=== PATIENT | male | born 1950 | race Caucasian/White ===

== ENCOUNTER 2019-09-29 11:36 | Emergency (ER) | payer BC, OTHER ==
[~2019-09-29] VITALS: Ht 185.4 cm; Wt 115.7 kg
[2019-09-29 11:36] VITALS: BP_SYST 115
--- NOTE | 2019-09-29 11:36 | NUR ---
BROUGHT BACK TO HALLWAY BED, TRIAGED. REPORT GIVEN TO JUAN
--- NOTE | 2019-09-29 11:41 | NUR ---
PRESSURE DRESSING APPLIED TO RIGHT ANKLE, LACERATION IS OOZING. DR LIN IS AT BEDSIDE FOR EVALUATION
--- NOTE | 2019-09-29 11:45 | NUR ---
ER Dr. Campbell at bedside examining patient.
--- NOTE | 2019-09-29 11:50 | NUR ---
Radiology at bedside performing x-ray of right foot
[2019-09-29 13:36] VITALS: BP_SYST 115
[2019-09-29] MEDS ORDERED: TRANEXAMIC ACID 1,000 MG/10 ML VIAL TP ONE (13:45)
[2019-09-29] MEDS ORDERED: TRANEXAMIC ACID 1,000 MG/10 ML VIAL ONE (14:00)
--- NOTE | 2019-09-29 14:20 | NUR ---
at bedside for wound care.
--- NOTE | 2019-09-29 15:23 | NUR ---
Patient given written and verbal discharge instructions and verbalizes understanding. ER MD discussed with patient the results and treatment provided. Patient in stable condition. ID arm band removed. Rx of NONE given. Patient educated on pain management and to follow up with PMD. Pain Scale 0/10. Opportunity for questions provided and answered. Medication side effect fact sheet provided.
== END 2019-09-29 15:23 | disposition home or self-care (01) ==
LOC: SED 11:36
DX: S90.511A Abrasion, right ankle, initial encounter (principal); Z88.0 Allergy status to penicillin; Z88.2 Allergy status to sulfonamides; V18.4XXA Pedal cycle driver injured in noncollision transport accident in traffic accident, initial encounter; Y93.89 Activity, other specified; Y92.89 Other specified places as the place of occurrence of the external cause; Y99.8 Other external cause status
CPT/HCPCS: 73610; 99283; J3490; 99285